=== PATIENT | male | born 1960 | race Caucasian/White ===

== ENCOUNTER 2024-07-20 08:21 | Day surgery (SDC) | payer MEDICARE ==
[2024-07-20] MEDS ORDERED: Sodium Chloride 0.9% 10 ML Syringe FLUSH PRN (09:03)
[2024-07-20] MEDS: LORazepam 2 MG/ML SDV IVPUSH ONE (09:42)
[2024-07-20] MEDS: Glucagon,Human Recombinant 1 MG Vial IVPUSH ONE (09:43)
[2024-07-20] MEDS: Lactated Ringers 1,000 ML IV SCH (09:45)
[2024-07-20] MEDS ORDERED: Propofol 200 MG/20 ML SDV ONE (10:35)
[2024-07-20] MEDS ORDERED: Midazolam 1 MG/ML 2 ML SDV ONE (10:35)
[2024-07-20] MEDS ORDERED: Lidocaine 1% 4 ML ONE (10:36)
[2024-07-20] MEDS ORDERED: Succinylcholine 200 MG/10 ML MDV ONE (10:36)
[2024-07-20] MEDS ORDERED: Dexamethasone 4 MG/ML SDV ONE (10:37)
[2024-07-20] MEDS ORDERED: fentaNYL 100 MCG/2 ML SDV ONE (10:39)
[2024-07-20] MEDS ORDERED: Lactated Ringers 1,000 ML ONE (11:20)
== END 2024-07-20 12:20 | disposition home or self-care (01) ==
LOC: JD.ED 08:21 → JD.SDS 10:15
PROVIDERS: ATTEND Surgery
DX: T18.128A Food in esophagus causing other injury, initial encounter (principal); K29.80 Duodenitis without bleeding; K20.0 Eosinophilic esophagitis; K22.89 Other specified disease of esophagus; K26.9 Duodenal ulcer, unspecified as acute or chronic, without hemorrhage or perforation
CPT/HCPCS: 43239; 43247; 96361; 96374; 96375; 99284; J0330; J1100; J1610; J2060; J2250; J2704; J3010; J7120; 99285; J3490